=== PATIENT | female | born 1955 | race Caucasian/White ===

== ENCOUNTER 2018-04-18 14:55 | Outpatient (CLI) | payer MEDICARE, BC ==
--- NOTE | 2018-04-18 15:48 | RAD ---
CERVICAL SPINE: 04/18/18 Three views. Lateral views obtained in neutral flexion, and extension positions. Correlation made to MRI from 2009. Fusion procedures are noted since that exam. There is now bony fusion at C4-5 and bony fusion at C6-7 . Degenerative changes with loss of disc space at C3-4. Posterior spondylosis and anterior spurring is prominent at this level. Disc narrowing and degenerative spurring is also prominent at C5-6 disc space. No significant subluxation or change in alignment with flexion or extension. IMPRESSION: Fusion changes are noted at C4-5 and at C6-7. Degenerative discs changes are prominent at C3-4 and at C5-6 as described. POS: [facility]
== END 2018-04-18 14:56 | disposition home or self-care (01) ==
LOC: TBSIIMAG 14:55
PROVIDERS: ATTEND Neurological Surgery
DX: M50.11 Cervical disc disorder with radiculopathy, high cervical region (principal); M50.122 Cervical disc disorder at C5-C6 level with radiculopathy; Z98.1 Arthrodesis status
CPT/HCPCS: 72040